=== PATIENT | male | born 1965 | race Caucasian/White ===

== ENCOUNTER 2018-09-08 13:16 | Emergency (ER) | payer SELFPAY ==
[2018-09-08 13:39] VITALS: BP 177/99
[2018-09-08] MEDS ORDERED: TETRACAINE HCL 0.5% OPH SOLN 4 ML OD ONE (14:44)
[2018-09-08] MEDS ORDERED: DIPH/PERTUSS(ACELL)/TETANUS VAC/PF 0.5 ML SYR (>=10YO) IM ONE (14:47)
--- NOTE | 2018-09-08 14:47 | ER Document Report ---
Addendum entered and electronically signed by BRENDON PLAZA PA-C 09/08/18 14:48: Course - Re-evaluation Re-evalutation: 09/08/18 14:48 Last tetanus 30 years ago per pt. - Vital Signs Vital signs: Temp Pulse Resp BP Pulse Ox 97.6 F 80 16 177/99 H 98 09/08/18 13:38 09/08/18 13:38 09/08/18 13:38 09/08/18 13:38 09/08/18 13:38 Original Note: ED Medical Screen (RME) - General Chief Complaint: Foreign Body in Eye Stated Complaint: EYE PAIN Time Seen by Provider: 09/08/18 14:44 TRAVEL OUTSIDE OF THE [place] IN LAST 30 DAYS: No - HPI Notes: 09/08/18 14:45 Patient is a 52-year-old male who presents complaining of foreign body to his [facility] eye times 3 days. 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 Patient states that he does have intermittent irritation and burning to the eye with redness associated. He does not wear contact lenses. Denies HEBERT, fever, neck pain, URI, CP, SOB, Abd pain, or rash. I have treated and performed a rapid initial assessment of this patient. A comprehensive ED assessment and evaluation of the patient, analysis of test results and completion of medical decision making process will be conducted by additional ED providers. PHYSICAL EXAMINATION: GENERAL: Well-appearing, well-nourished and in no acute distress. A&Ox4. Answers questions appropriately. Rt eye: there does appear to be a foreign body with white light to the 3pm position of the cornea. PERRLA, EOMI. + injection rt eye. LUNGS: Breath sounds clear to auscultation bilaterally and equal. No wheezes rales or rhonchi. HEART: Regular rate and rhythm without murmurs, rubs, gallops. - Related Data Allergies/Adverse Reactions: No Known Allergies Allergy (Verified 09/08/18 13:20) Physical Exam - Vital signs Vitals: Temp Pulse Resp BP Pulse Ox 97.6 F 80 16 177/99 H 98 09/08/18 13:38 09/08/18 13:38 09/08/18 13:38 09/08/18 13:38 09/08/18 13:38 Course - Vital Signs Vital signs: Temp Pulse Resp BP Pulse Ox 97.6 F 80 16 177/99 H 98 09/08/18 13:38 09/08/18 13:38 09/08/18 13:38 09/08/18 13:38 09/08/18 13:38
--- NOTE | 2018-09-08 15:51 | ER Document Report ---
ED General - General Chief Complaint: Foreign Body in Eye Stated Complaint: EYE PAIN Time Seen by Provider: 09/08/18 14:44 Mode of Arrival: Ambulatory Information source: Patient TRAVEL OUTSIDE OF THE [place] IN LAST 30 DAYS: No - HPI Patient complains to provider of: Metallic foreign body right eye Onset: Other - 3 days ago Onset/Duration: Persistent Quality of pain: Burning Severity: Mild Pain Level: 2 Associated symptoms: None Exacerbated by: Denies Relieved by: Denies Similar symptoms previously: No Recently seen / treated by doctor: No Notes: 52-year-old male coming in today with a metallic foreign body in the right eye. - Related Data Allergies/Adverse Reactions: No Known Allergies Allergy (Verified 09/08/18 13:20) Past Medical History - General Information source: Patient - Social History Smoking Status: Current Every Day Smoker Frequency of alcohol use: Social Drug Abuse: None Family History: Reviewed & Not Pertinent Patient has suicidal ideation: No Patient has homicidal ideation: No Renal/ Medical History: Denies: Hx Peritoneal Dialysis Review of Systems - Review of Systems Notes: Constitutional: No fevers. No chills. EENT: Positive for redness and pain in the right eye. Positive for right eye foreign body no ear pain. No sore throat. Cardiovascular: No chest pain. No palpitations. Respiratory: No cough. No shortness of breath. No respiratory distress. Gastrointestinal: No abdominal pain. No nausea, vomiting, or diarrhea. Genitourinary: Atraumatic. No lesions. No pain. No discharge. Musculoskeletal: Atraumatic. No swelling. No deformities. Skin: No rash or lesions. Lymphatic: No swollen lymph nodes. Neurologic: No headache. No syncope. Psychiatric: No suicidal or homicidal ideation. Physical Exam - Vital signs Vitals: Temp Pulse Resp BP Pulse Ox 97.6 F 80 16 177/99 H 98 09/08/18 13:38 09/08/18 13:38 09/08/18 13:38 09/08/18 13:38 09/08/18 13:38 - Notes Notes: General: Well-developed, well-nourished. In no acute distress. Non-toxic appearing. Cardiac: Well-perfused. Regular rate and rhythm. No murmurs, rubs, or gallops. Pulmonary: No respiratory distress. No cyanosis. Bilateral lung fiels are clear to auscultation. Abdominal: Non-distended. Non-rigid. Bowels sounds are present in all four quadrants. No guarding or rebound. HEENT: Head is atraumatic. Conjunctiva right eye 1+ injected. No tearing. PERRL. EOMI. Orbits atraumatic. No periorbital swelling or erythema. Oropharynx is without erythema, swelling, or exudates. Metallic foreign body at the 3 o'clock position of the right cornea. Possible early rust ring. Neck: Supple. No adenopathy. No meningismus. Dermatologic: Warm with good turgor. No rash. Atraumatic. Chest: Atraumatic. No chest wall tenderness to palpation. Musculoskeletal: Moves all extremities well. No range of motion deficits. no muscular or joint tenderness. No paraspinal muscle tenderness. no midline spinal tenderness or step-off. Genitourinary: Examination deferred Neurologic: No gross neurologic deficits. Psychiatric: Normal mood. - HEENT Visual acuity- Right eye: 20/20 Visual acuity- Left eye: 20/15 Visual acuity- Both eyes: 20/15 Corrective lenses worn: No Course - Re-evaluation Re-evalutation: 09/08/18 15:49 I called across the street to Dr. Nevarez's office and they will gladly see the patient if he comes directly. - Vital Signs Vital signs: Temp Pulse Resp BP Pulse Ox 97.6 F 80 16 177/99 H 98 09/08/18 13:38 09/08/18 13:38 09/08/18 13:38 09/08/18 13:38 09/08/18 13:38 Discharge - Discharge Clinical Impression: Elevated blood pressure reading Corneal foreign body with residual material Qualifiers: Encounter type: initial encounter Laterality: right Qualified Code(s): T15.01XA - Foreign body in cornea, right eye, initial encounter Condition: Good Disposition: HOME, SELF-CARE Instructions: Corneal Foreign Body with Rust ([facility]) Additional Instructions: Please go directly to the eye doctor. Forms: Elevated Blood Pressure Referrals: ROSAMARIA COKER DO [ACTIVE STAFF] - 09/08/18 3:51 pm
== END 2018-09-08 15:53 | disposition home or self-care (01) ==
LOC: ER 13:16
DX: T15.01XA Foreign body in cornea, right eye, initial encounter (principal); R03.0 Elevated blood-pressure reading, without diagnosis of hypertension; X58.XXXA Exposure to other specified factors, initial encounter; F17.200 Nicotine dependence, unspecified, uncomplicated
CPT/HCPCS: 99283; 90471; 90715; J3490